=== PATIENT | female | born 1960 | race Caucasian/White ===

== ENCOUNTER 2018-05-17 18:14 | Inpatient (IN) | payer BC, OTHER ==
[~2018-05-17] VITALS: Ht 160 cm; Wt 87.5 kg
[~2018-05-17 18:14] MED LIST: AMO500 PO; BLOOD PRESSURE MED; FLUT10SP NS; HCTZ25 PO; KET10 PO; LISI-346 PO; LORA-630 PO; MECL-205 PO; MECL25TA27 PO; MELO7.5O3 PO; PRE20 PO; PROM-110 PO; [UNRECOGNIZED DRUG - CODE] PO
[2018-05-17] MEDS ORDERED: NS(*) 0.9% 1000 ML BAG 1,000 ML IV ONE (18:27)
[2018-05-17] MEDS ORDERED: ALBUTEROL/IPRATROPIUM 3 ML NEB NEB ONE (18:30)
[2018-05-17] MEDS ORDERED: MORPHINE 2 MG/ML SYR IVP ONE (18:30)
[2018-05-17 18:52] LABS: PLATELET COUNT, AUTOMATED 225 K/uL (150-450)
--- NOTE | 2018-05-17 18:52 | EKG ---
FACILITY: [facility] - [place] PATIENT NAME: SCOTT CANALES : [id number] MR: [id number] V: [id number] EXAM DATE: ORDERING PHYSICIAN: CASANDRA GUERRERO TECHNOLOGIST: JOSELUIS Mix Reason : SOB Blood Pressure : / mmHG Vent. Rate : 100 BPM Atrial Rate : 100 BPM P-R Int : 120 ms QRS Dur : 076 ms QT Int : 320 ms P-R-T Axes : 065 047 035 degrees QTc Int : 412 ms Normal sinus rhythm Normal ECG When compared with ECG of 12-JUL-2016 22:42, No significant change was found Confirmed by Sahil Guzman ([id number]) on 05/17/2018 11:10:38 PM Referred By: Confirmed By:Sahil Catalan
--- NOTE | 2018-05-17 19:08 | ER Report ---
History and Physical Time Seen By MD: 18:23 Hx. of Stated Complaint: Pt. sent here from [facility] with diagnosis of RUL Pneumonia. She needed O2 for home use for hypoxia, and [facility] does not do home oxygen so she came here. Fever 100.9. HPI/ROS CHIEF COMPLAINT: Cough, hypoxia, headache HISTORY OF PRESENT ILLNESS: 58-year-old female patient presents to emergency room with complaint of cough, hypoxia and headache. Patient states that she got into the medical center acute-care clinic. She was evaluated there. They did a chest x-ray found a left lower lobe pneumonia. Patient was not able to maintain her oxygen saturations without oxygen and was referred to emergency room for possible admission. Patient states that she has had a fever. She denies any nausea, vomiting or diarrhea. Patient states that her headache is worse headache she is had. She denies any numbness or tingling. She denies any confusion. She states that she has not taken any medication for this. She states she been ill for several days. She was placed on Augmentin a couple of days ago for sinusitis. She came back to the urgent care today and was significantly worse. Patient did have a flu shot this year and has not had a flu screening. REVIEW OF SYSTEMS: Respiratory: As noted above Cardiovascular: No chest pain, no palpitations. Gastrointestinal: No vomiting, no abdominal pain. Musculoskeletal: No back pain. Allergies: Coded Allergies: No Known Drug Allergies (Verified , 05/17/18) Home Meds Reported Medications Meloxicam (MELOXICAM) 7.5 Mg/5 Ml Oral.susp, 7.5 MG PO BID PRN for PAIN 07/12/16 Meclizine Hcl (MECLIZINE HCL) 25 Mg Tab.chew, 25 MG PO BID PRN for DIZZINESS, TAB.CHEW 07/12/16 Lisinopril (Lisinopril) 10 Mg Tablet, 15 MG PO, 0 Refills 02/11/09 Levothyroxine Sodium (Synthroid) 500 Mcg/Vial Vial, 50 MCG PO QDAY, 0 Refills 02/11/09 Past Medical/Surgical History Patient has a past medical history of hypertension, migraines, hypothyroidism. Patient has surgical history of thyroidectomy. Reviewed Nurses Notes: Yes Hx Smoking: No Hx Substance Use Disorder: No Hx Alcohol Use: No Constitutional Vital Sign - Last 24 Hours 205/17/18 05/17/18 05/17/18 18:22 18:23 18:24 18:29 Temp 100.9 Pulse 106 108 103 B/P (MAP) 109/63 109/63 (78) Pulse Ox 95 96 94 O2 Delivery Nasal Cannula Nasal Cannula O2 Flow Rate 3 05/17/18 05/17/18 05/17/18 05/17/18 18:30 18:34 18:39 18:44 Pulse 97 101 Resp 17 20 16 B/P (MAP) 118/57 (77) Pulse Ox 94 94 05/17/18 05/17/18 05/17/18 05/17/18 18:44 18:44 18:48 18:49 Pulse 97 115 Resp 23 14 Pulse Ox 94 94 98 O2 Delivery Nasal Cannula O2 Flow Rate 3.0 4.0 05/17/18 05/17/18 05/17/18 05/17/18 18:54 18:57 18:59 19:00 Pulse 113 97 108 Resp 19 16 29 B/P (MAP) 111/62 (78) Pulse Ox 93 92 05/17/18 05/17/18 05/17/18 05/17/18 19:04 19:09 19:14 19:29 Pulse 106 105 104 107 Resp 29 17 21 17 Pulse Ox 93 93 93 95 05/17/18 05/17/18 05/17/18 05/17/18 19:30 19:34 19:39 19:44 Pulse 102 106 102 Resp 18 21 19 B/P (MAP) 139/54 (82) Pulse Ox 96 96 97 05/17/18 05/17/18 05/17/18 05/17/18 19:49 20:02 20:24 20:30 Pulse 105 94 Resp 22 14 B/P (MAP) 119/55 (76) 106/51 (69) Pulse Ox 98 95 05/17/18 05/17/18 05/17/18 20:35 21:05 21:20 Pulse 90 94 94 Resp 18 20 21 Pulse Ox 95 93 95 Physical Exam General Appearance: The patient is alert, has no immediate need for airway protection and no current signs of toxicity. Respiratory: Chest is non tender, lungs are diminished in the bases to auscultation. Cardiac: regular rate and rhythm Gastrointestinal: Abdomen is soft and non tender, no masses, bowel sounds normal. Musculoskeletal: Neck: Neck is supple and non tender. Extremities have full range of motion and are non tender. Skin: No rashes or lesions. DIFFERENTIAL DIAGNOSIS: After history and physical exam differential diagnosis was considered for pneumonia, influenza, viral syndrome. Medical Decision Making Data Points Result Diagram: 05/17/182 05/17/182 Laboratory Hematology Test 05/17/18 18:42 05/17/18 18:45 05/17/18 19:42 Red Blood Count 4.54 M/uL (4.17-5.56) Mean Corpuscular Volume 88.9 fL (80.0-96.0) Mean Corpuscular Hemoglobin 29.4 pg (26.0-33.0) Mean Corpuscular Hemoglobin Concent 33.1 g/dL (32.0-36.0) Red Cell Distribution Width 15.2 % (11.5-14.5) Mean Platelet Volume 8.8 fL (7.2-11.1) Neutrophils (%) (Auto) 81.1 % (39.4-72.5) Lymphocytes (%) (Auto) 13.9 % (17.6-49.6) Monocytes (%) (Auto) 4.3 % (4.1-12.4) Eosinophils (%) (Auto) 0.1 % (0.4-6.7) Basophils (%) (Auto) 0.6 % (0.3-1.4) Nucleated RBC Relative Count (auto) 0.0 /100WBC Neutrophils # (Auto) 5.3 K/uL (2.0-7.4) Lymphocytes # (Auto) 0.9 K/uL (1.3-3.6) Monocytes # (Auto) 0.3 K/uL (0.3-1.0) Eosinophils # (Auto) 0.0 K/uL (0.0-0.5) Basophils # (Auto) 0.0 K/uL (0.0-0.1) Nucleated RBC Absolute Count (auto) 0.00 K/uL Erythrocyte Sedimentation Rate 37 mm/HOUR (0-30) D-Dimer Quantitative (PE/DVT) 1.95 ug/ml (0-0.50) Sodium Level 134 mmol/L (137-145) Potassium Level 4.7 mmol/L (3.5-5.0) Chloride Level 102 mmol/L (98-107) Carbon Dioxide Level 20 mmol/L (22-31) Blood Urea Nitrogen 28 mg/dl (7-18) Creatinine 1.90 mg/dl (0.52-1.04) Glomerular Filtration Rate Calc 27.2 Random Glucose 100 mg/dl (75-110) Calcium Level 8.6 mg/dl (8.4-10.2) Total Bilirubin 0.9 mg/dl (0.2-1.3) Aspartate Amino Transf (AST/SGOT) 59 U/L (0-35) Alanine Aminotransferase (ALT/SGPT) 42 U/L (0-56) Alkaline Phosphatase 86 U/L (0-126) Troponin I 0.028 ng/ml C-Reactive Protein 22.9 mg/dl (<1.0) Total Protein 7.9 g/dl (6.3-8.2) Albumin 4.3 g/dl (3.5-5.0) Influenza Virus Type A (PCR) Positive (NEGATIVE) Influenza Virus Type B (PCR) Negative (NEGATIVE) Lactate 1.3 mmol/L (0.7-2.1) Chemistry Test 05/17/18 18:42 05/17/18 18:45 05/17/18 19:42 White Blood Count 6.5 k/uL (4.5-11.0) Red Blood Count 4.54 M/uL (4.17-5.56) Hemoglobin 13.4 g/dL (12.0-16.0) Hematocrit 40.3 % (34.0-47.0) Mean Corpuscular Volume 88.9 fL (80.0-96.0) Mean Corpuscular Hemoglobin 29.4 pg (26.0-33.0) Mean Corpuscular Hemoglobin Concent 33.1 g/dL (32.0-36.0) Red Cell Distribution Width 15.2 % (11.5-14.5) Platelet Count 225 K/uL (150-450) Mean Platelet Volume 8.8 fL (7.2-11.1) Neutrophils (%) (Auto) 81.1 % (39.4-72.5) Lymphocytes (%) (Auto) 13.9 % (17.6-49.6) Monocytes (%) (Auto) 4.3 % (4.1-12.4) Eosinophils (%) (Auto) 0.1 % (0.4-6.7) Basophils (%) (Auto) 0.6 % (0.3-1.4) Nucleated RBC Relative Count (auto) 0.0 /100WBC Neutrophils # (Auto) 5.3 K/uL (2.0-7.4) Lymphocytes # (Auto) 0.9 K/uL (1.3-3.6) Monocytes # (Auto) 0.3 K/uL (0.3-1.0) Eosinophils # (Auto) 0.0 K/uL (0.0-0.5) Basophils # (Auto) 0.0 K/uL (0.0-0.1) Nucleated RBC Absolute Count (auto) 0.00 K/uL Erythrocyte Sedimentation Rate 37 mm/HOUR (0-30) D-Dimer Quantitative (PE/DVT) 1.95 ug/ml (0-0.50) Glomerular Filtration Rate Calc 27.2 Calcium Level 8.6 mg/dl (8.4-10.2) Total Bilirubin 0.9 mg/dl (0.2-1.3) Aspartate Amino Transf (AST/SGOT) 59 U/L (0-35) Alanine Aminotransferase (ALT/SGPT) 42 U/L (0-56) Alkaline Phosphatase 86 U/L (0-126) Troponin I 0.028 ng/ml C-Reactive Protein 22.9 mg/dl (<1.0) Total Protein 7.9 g/dl (6.3-8.2) Albumin 4.3 g/dl (3.5-5.0) Influenza Virus Type A (PCR) Positive (NEGATIVE) Influenza Virus Type B (PCR) Negative (NEGATIVE) Lactate 1.3 mmol/L (0.7-2.1) Coagulation Test 05/17/18 18:42 D-Dimer Quantitative (PE/DVT) 1.95 ug/ml EKG/Imaging Imaging CT Head without contrast Indication: Headache. Comparison: None available Technique: Axial CT images were obtained through the brain from the skull base to the vertex without administration of IV contrast. Reformatted coronal and sagittal images were also obtained. One of the following dose optimization techniques was utilized in the performance of this exam: automated exposure control; adjustment of the mA and/or kV according to the patient's size; or use of an iterative reconstruction technique. Specific details can be referenced in the facility's radiology CT exam operational policy. Findings: No evidence of mass, mass effect, or midline shift. No acute intracranial hemorrhage or acute territorial infarction. No extra-axial fluid collection or hydrocephalus. No abnormal density. Nino/white matter differentiation appears normal. Bony structures show no fractures or lesions. Mild hyperostosis from talus. Mild rightward deviation nasal septum. Focal mucosal thickening seen in the posterior aspect of the left maxillary sinus which could represent a cyst/polyp. Minimal mucosal thickening seen in the left sphenoid sinus. The remaining sinuses and mastoids visualized are clear. IMPRESSION: 1. No acute intracranial abnormality. 2. Left maxillary and sphenoid sinus disease. Report Dictated By: Chase Mcclendon at 05/17/2018 7:32 PM Report E-Signed By: Chase Mcclendon at 05/17/2018 7:36 PM ED Course/Re-evaluation ED Course Patient was admitted on exam, history and physical were obtained. Differential diagnoses were considered. On examination lungs are clear, heart is regular, abdomen is soft tender. I did review the x-ray which was done at the urgent ca re. They read wasn't occluded with even of a infiltrate in the right lower lobe. A CBC, CMP, lactate, blood cultures, influenza screen, CT scan of the head were done. Patient complaining of horrible headache did receive a dose of 4 mg of morphine. Which seem to help with the pain. CT scan of the head showed a sinus disease. Labs showed no acute findings except the patient does have renal failure. Her creatinine today and measured 1.9. In the past and had measured 0.8. Her influenza was positive. Her ESR and CRP were both elevated. I discussed the case with Dr. Carcamo, hospitalist, who came down and evaluated the patient and agreed to accept the patient to the hospital with diagnosis of influenza, pneumonia, acute renal failure. I discussed this with the patient and her verbalized understanding and agreement with plan. Decision to Disposition Date: May 17, 2018 Decision to Disposition Time: 21:00 Depart Departure Latest Vital Signs Vital Signs Date Time Temp Pulse Resp B/P (MAP) Pulse Ox O2 Delivery O2 Flow Rate FiO2 05/17/18 21:20 94 21 95 05/17/18 20:30 106/51 (69) 05/17/18 18:48 4.0 05/17/18 18:44 Nasal Cannula 05/17/18 18:22 100.9 Impression: Primary Impression: Influenza A Additional Impressions: Acute renal failure Pneumonia Elevated d-dimer Condition: Condition Unchanged Disposition: Admitted from ER Referrals: NEHEMIAH SINGLETARY (PCP) Problem Qualifiers Additional Impressions: Acute renal failure Acute renal failure type: unspecified Qualified Codes: N17.9 - Acute kidney failure, unspecified Pneumonia Pneumonia type: due to unspecified organism Laterality: right Lung location: lower lobe of lung Qualified Codes: J18.1 - Lobar pneumonia, unspecified organism CASANDRA GUERRERO May 17, 2018 19:08
--- NOTE | 2018-05-17 19:41 | RADIOLOGY IMAGING REPORT ---
FACILITY: [facility] - [place] PATIENT NAME: Ruby Peng : 1960 MR: [id number] V: [id number] EXAM DATE: ORDERING PHYSICIAN: CASANDRA GUERRERO TECHNOLOGIST: Location: [facility] Patient: Ruby Peng : 1960 Visit/Account:[id number] Date of Sevice: 05/17/2018 CT Head without contrast Indication: Headache. Comparison: None available Technique: Axial CT images were obtained through the brain from the skull base to the vertex without administration of IV contrast. Reformatted coronal and sagittal images were also obtained. One of the following dose optimization techniques was utilized in the performance of this exam: autom ated exposure control; adjustment of the mA and/or kV according to the patient's size; or use of an i terative reconstruction technique. Specific details can be referenced in the facility's radiology CT exam operational policy. Findings: No evidence of mass, mass effect, or midline shift. No acute intracranial hemorrhage or acute territorial infarction. No extra-axial fluid collection or hydrocephalus. No abnormal density. Nino/white matter differentiat ion appears normal. Bony structures show no fractures or lesions. Mild hyperostosis from talus. Mild rightward deviation nasal septum. Focal mucosal thickening seen in the posterior aspect of the left maxillary sinus which could represe nt a cyst/polyp. Minimal mucosal thickening seen in the left sphenoid sinus. The remaining sinuses an d mastoids visualized are clear. IMPRESSION: 1. No acute intracranial abnormality. 2. Left maxillary and sphenoid sinus disease. Report Dictated By: Chase Mcclendon at 05/17/2018 7:32 PM Report E-Signed By: Chase Mcclendon at 05/17/2018 7:36 PM WSN:[id number]
[2018-05-17] MEDS ORDERED: ACETAMINOPHEN(*)1000 MG/100 ML 100 ML IVPB ONE (21:25)
[2018-05-17] MEDS ORDERED: cefTRIAXone 2 GM VIAL IVP ONE (21:25)
[2018-05-17] MEDS ORDERED: AZITHROMYCIN(*) 500 MG 500 MG in NS(*) 0.9% 250 ML BAG 250 ML IVPB ONE (21:25)
[2018-05-17] MEDS ORDERED: NS(*) 0.9% 1000 ML BAG 1,000 ML IV PRN (22:04)
[2018-05-17] MEDS ORDERED: FLUSH 10 ML SYR IVP PRN (22:05)
[2018-05-17] MEDS ORDERED: OSELTAMIVIR PHOS 75 MG CAP PO SCH (22:05)
[2018-05-17] MEDS ORDERED: ONDANSETRON 4 MG/2 ML VIAL IVP PRN (22:05)
[2018-05-17] MEDS ORDERED: INFLUENZA VIRUS VAC 0.5ML SYR IM ONLY ONE (22:05)
[2018-05-17] MEDS ORDERED: ALBUTEROL 2.5 MG/3 ML NEB NEB PRN (22:05)
[2018-05-17] MEDS ORDERED: ACETAMINOPHEN 325 MG TAB PO PRN (22:05)
[2018-05-17 22:07] VITALS: BP 132/66
--- NOTE | 2018-05-17 22:47 | History & Physical ---
History of Present Illness Chief Complaint fatigue, fever, PATEL History of Present Illness 58F presented after being found hypoxic with CXR suggestive of PNA at urgent care. PMHx significant for prediabetes, HTN, hypothyroid. Feeling poorly for 5-6 days diagnosed Monday with sinusitis in urgent care and started on Augmentin. Continued to feel poorly and when she was found hypoxic today CXR was obtained and RUL infiltrate noted. Sent to [facility] ER where she was tested positive for influenza a. Admitted for IV antibiotics, IV hydration, supplemental O2, antiviral treatment. History Problems: (1) Hypertension (2) Hypothyroid (3) Prediabetes Home Meds Reported Medications Meloxicam (MELOXICAM) 7.5 Mg/5 Ml Oral.susp, 7.5 MG PO BID PRN for PAIN 07/12/16 Meclizine Hcl (MECLIZINE HCL) 25 Mg Tab.chew, 25 MG PO BID PRN for DIZZINESS, TAB.CHEW 07/12/16 Lisinopril (Lisinopril) 10 Mg Tablet, 15 MG PO, 0 Refills 02/11/09 Levothyroxine Sodium (Synthroid) 500 Mcg/Vial Vial, 50 MCG PO QDAY, 0 Refills 02/11/09 Allergies: Coded Allergies: No Known Drug Allergies (Verified , 05/17/18) Patient History: FH: diabetes mellitus MOTHER Hx Smoking: No Smoking Status: Never Smoker Hx Alcohol Use: No Hx Substance Use Disorder: No Social Drug Use: Never Review of Systems Constitutional: Fever Respiratory: Shortness of Breath, Cough Gastrointestinal: Nausea, Vomiting Exam Vital Signs Vital Signs Date Time Temp Pulse Resp B/P (MAP) Pulse Ox O2 Delivery O2 Flow Rate FiO2 05/17/18 22:07 99.0 87 18 132/66 (88) 97 Nasal Cannula 3.0 General Appearance: Alert, Awake, No Acute Distress Neuro: No Gross deficits ENT: Normal Cardiovascular: Normal Rhythm & Peripheral Pulses Respiratory: Other (diffuse crackles, wheezing on 3L NC) GI: Abd Soft and Non-Tender Extremities: Soft and Non Tender, Warm, Pulses, Perfused; No Edema Integumentary: Skin Intact without Lesion / Mass Medical Decision Making Data Points Result Diagram: 05/17/18184105/17/181841 Assessment and Plan Problems: (1) Acute respiratory failure with hypoxia Assessment & Plan: Secondary to influenza and pneumonia. Requiring 3L on admission, baseline room air. (2) Influenza A Status: Acute Assessment & Plan: Begin oseltamivir, supportive care. (3) Pneumonia Status: Acute Assessment & Plan: RLL per CXR at urgent care. Started on empiric CAP coverage with ceftriaxone and azithromycin IV. (4) Acute renal failure Status: Acute Assessment & Plan: Cr 1.9 on admission, baseline appears to be normal range about 0.9. IV fluids and recheck Cr in am. (5) Hypertension Assessment & Plan: ON chronic lisinopril, hold in setting of ALBINO. (6) Hypothyroid Assessment & Plan: Continue levothyroxine. (7) Prediabetes Assessment & Plan: On metformin outpatient, hold while inpatient. Diabetic diet. Venous Thromboembolism Antithrombotics Is Pt On Any Antithrombotics?: Yes Exam Sepsis Risk: Possible Sepsis Risk Problem Qualifiers (1) Pneumonia: Pneumonia type: due to unspecified organism Laterality: right Lung location: lower lobe of lung Qualified Codes: J18.1 - Lobar pneumonia, unspecified organism (2) Acute renal failure: Acute renal failure type: unspecified Qualified Codes: N17.9 - Acute kidney failure, unspecified MODESTA GRIFFIN DO May 17, 2018 22:47
[2018-05-17] MEDS: ALBUTEROL/IPRATROPIUM 3 ML NEB NEB SCH (23:03)
[2018-05-18] MEDS: OSELTAMIVIR PHOS 30 MG CAP PO SCH ×2 (00:52→09:11)
[2018-05-18 01:02] VITALS: BP 99/62
[2018-05-18 03:42] VITALS: BP 119/55
[2018-05-18 06:13] LABS: PLATELET COUNT, AUTOMATED 196 K/uL (150-450)
--- NOTE | 2018-05-18 07:16 | RADIOLOGY IMAGING REPORT ---
FACILITY: [facility] PATIENT NAME: Ruby Peng : 1960 MR: [id number] V: [id number] EXAM DATE: ORDERING PHYSICIAN: MODESTA SEE TECHNOLOGIST: Location: [facility] [place] Patient: Ruby Peng : 1960 Visit/Account:[id number] Date of Sevice: 05/18/2018 CHEST SINGLE AP 05/18/2018 06:25 hours. HISTORY: Pneumonia. COMPARISON: 07/12/2016 and studies dating to 02/06/2008. TECHNIQUE: Portable AP view of the chest. FINDINGS: Tubes/lines/hardware: None. Pulmonary/pleura: There is bronchial thickening and mild prominence of interstitium, new. There is no pneumothorax or pleural effusion. Cardiomediastinal: Cardiac and mediastinal silhouettes are within normal limits. Bones/soft tissues: No acute osseous abnormality. The visible abdomen is normal. IMPRESSION: 1. New interstitial prominence and bronchial thickening. Findings can be seen with atypical/viral pne umonia. Report Dictated By: Abby Valdez at 05/18/2018 7:10 AM Report E-Signed By: Abby Vadlez at 05/18/2018 7:14 AM [id number]
[2018-05-18 07:23] VITALS: BP 110/63
[2018-05-18 08:26] VITALS: Ht 160 cm; Wt 87.5 kg
--- NOTE | 2018-05-18 08:34 | Medical Nutrition Therapy ---
Nutrition Anthropometrics Height (Inches): 63.00 Height (Calculated Centimeters: 160.912594 Weight (Pounds): 193 Weight (Calculated Kilograms): 87.543 Joshua Nutrition Score: Probably Inadequate Joshua Nutrition Risk Score: 19 Dietary Referral Nutrition Risk Factors: Nutrition Risk Comment: Physical Findings Physical Appearance: Obese BMI 30-39 Skin Appearance Skin Appearance: Edema Edema Location Modifier: Edema Location: Type of Edema: Degree of Edema: Gastrointestinal Symptoms GI Symtoms: Nausea, Vomiting, Appetite Changes Tube Present: Bowel Sounds: Recent Bowel Pattern: Stool Characteristics: Nutritional Diagnosis Nutritional Risk Acuity 1: Acute/ES Renal Past Medical History: HTN, hypothyroid, pre-diabetes Nutritional Acuity: 1-High Nutrition Diagnosis: Increased Nutrient Needs Nutrition Etiology: Physiological Causes Nutrition Problem/Etiology/Sym: Increased nutrient needs as related to physiological causes as evidenced by acute resp. failure. Energy Requirement: 2038 (M-St. Jeor X 1.1 (TEF) X 1.3 (activity factor) slightly increased due to resp. failure) Protein Requirement: 70 (0.8 g protein/ kg. Did not increase due to ARF) Fluid Requirement: 2175 (25mL/kg) Nutrition Intervention: Cont diet as ordered, Encourage intake Nutrition Monitoring & Eval Nutrition Goals: Eat 50-100% Meal, Drink > 2 liters/day RD Patient Assessment Time: [address] Assessment Type: RD Assessment Patient Nutrition Acuity: 1-High Follow Up Date: May 20, 2018 Nutritional Comment: Pt admitted with fatigue, fever and PATEL. Hx of HTN, hyopthyroid, and pre-diabetes. Dx with acute resp. failure, influenza A, pneumonia, and acute renal failure. Pt taking enoxaprin. RBC of 4.14 are low. AST has improved from 59-42, while ALT is WNL. BUN, CO2, and creatinine were elevated but has decreased to WNL. Monitor for adequate intakes. -DIMITRI ORTEGA May 18, 2018 08:34
[2018-05-18] MEDS ORDERED: ENOXAPARIN 40 MG/0.4ML SYR SC SCH (09:00)
[2018-05-18] MEDS ORDERED: OSELTAMIVIR PHOS 75 MG CAP PO ONE (09:30)
[2018-05-18] MEDS: ALBUTEROL/IPRATROPIUM 3 ML NEB NEB SCH (10:40)
--- NOTE | 2018-05-18 13:17 | Hospitalist Progress Note ---
Subjective Progress Notes Subjective She reports feeling improved, but still no appetite. Physical Exam Vital Signs Date Time Temp Pulse Resp B/P (MAP) Pulse Ox O2 Delivery O2 Flow Rate FiO2 05/18/18 10:45 81 16 05/18/18 10:36 93 Nasal Cannula 1.5 05/18/18 07:23 98.8 110/63 (79) Intake and Output 05/18/18 07:00 Intake Total 2178 ml Balance 2178 ml Intake Oral 350 ml IV Total 1828 ml # Voids 3 General Appearance: Alert, Awake Cardiovascular: Regular Rate and Rhythm Respiratory: Other (scattered rhonchi and soft expiratory wheezes) GI: Soft and Non-Tender Extremities: Warm, Perfused Psych: Alert & Oriented X3 Result Diagram: 05/18/1852105/18/18521 Assessment and Plan Problems: (1) Influenza A Status: Acute Assessment & Plan: She is on oseltamivir and supportive care. Watch closely. (2) Pneumonia Status: Acute Assessment & Plan: Found to have RLL per CXR at urgent care (recheck CXR today). Started on empiric CAP coverage with ceftriaxone and azithromycin IV. (3) Acute renal failure Status: Acute Assessment & Plan: Creatinine 1.9 on admission. She was given IV fluids overn ight. Recheck this AM is in normal range at 1.0. (4) Hypertension Assessment & Plan: She has been on chronic lisinopril, but we are holding in setting of ALBINO. (5) Hypothyroid Assessment & Plan: Continue levothyroxine. (6) Prediabetes Assessment & Plan: On metformin as an outpatient, hold while inpatient. Exam Sepsis Risk: No Definite Risk Problem Qualifiers (1) Pneumonia: Pneumonia type: due to unspecified organism Laterality: right Lung location: lower lobe of lung Qualified Codes: J18.1 - Lobar pneumonia, unspecified organism (2) Acute renal failure: Acute renal failure type: unspecified Qualified Codes: N17.9 - Acute kidney failure, unspecified ADOLFO JOHNSON MD May 18, 2018 13:17
[2018-05-18] MEDS ORDERED: OSE75 PO (14:51)
[2018-05-18] MEDS ORDERED: CEF300 PO (14:51)
[2018-05-18] MEDS ORDERED: AZIT500T47 PO (14:51)
[2018-05-18] MEDS ORDERED: ACET-2007 PO (14:51)
--- NOTE | 2018-05-18 15:11 | Hospitalist Depart ---
Discharge Summary Reason for Hosp/Final Diag: (1) Pneumonia Status: Acute Hospital Course & Plan: She was found to have an infiltrate on CXR done at local urgent care. Recheck CXR showed bronchial thickening with interstitial prominence. She was started on empiric CAP coverage with IV ceftriaxone and azithromycin, as well as oral Tamiflu. She was given supplemental oxygen as needed. Her room air oxygen saturations were in 80% range. She improved clinically with respect to her symptoms. She was eating and drinking well. She was tolerating low levels of activity. It was felt she would be able to complete her course of antibiotics and antiviral as an outpatient. She will need supplemental oxygen temporarily. She will follow up with her primary care provider, Renee MUELLER, as an outpatient in the next 3-5 days. She will return to the ER if any problems. (2) Influenza A Status: Acute Hospital Course & Plan: She was placed on oseltamivir and supportive care. Her family was advised to contact their primary care provider to discuss prophylaxis for influenza. (3) Acute renal failure Status: Acute Hospital Course & Plan: Creatinine 1.9 on admission. She was given IV fluids overnight. Recheck this AM is in normal range at 1.0. (4) Hypertension Hospital Course & Plan: She has been on chronic lisinopril, but we are currently holding. Her BPs during admission were are in low normal range. She was advised not to take the lisinopril until she sees her primary care provider. (5) Hypothyroid Hospital Course & Plan: Continue levothyroxine. (6) Prediabetes Hospital Course & Plan: Apparently, she has been on metformin as an outpatient. We did hold this while inpatient. Departure Weight (Pounds): 193 Result Diagram: 05/18/1852105/18/18521 Item Value Date Time White Blood Count 6.5 k/uL 05/17/181841 Hemoglobin 13.4 g/dL 05/17/181841 Hematocrit 40.3 % 05/17/181841 Platelet Count 225 K/uL 05/17/18 184 Sodium Level 134 mmol/L L 05/17/18 184 Potassium Level 4.7 mmol/L 05/17/181841 Chloride Level 102 mmol/L 05/17/181841 Carbon Dioxide Level 20 mmol/L L 05/17/181841 Blood Urea Nitrogen 28 mg/dl H 05/17/181841 Creatinine 1.90 mg/dl H 05/17/181841 Glomerular Filtration Rate Calc 27.2 05/17/181841 Random Glucose 100 mg/dl 05/17/181841 Calcium Level 8.6 mg/dl 05/17/181841 Total Bilirubin 0.9 mg/dl 05/17/181841 Aspartate Amino Transf (AST/SGOT) 59 U/L H 05/17/181841 Alanine Aminotransferase (ALT/SGPT) 42 U/L 05/17/181841 Alkaline Phosphatase 86 U/L 05/17/181841 Troponin I 0.028 ng/ml 05/17/181841 C-Reactive Protein 22.9 mg/dl H 05/17/181841 Total Protein 7.9 g/dl 05/17/181841 Albumin 4.3 g/dl 05/17/181841 Lactate 1.3 mmol/L 05/17/181941 Albumin 3.5 g/dl 05/18/18521 Total Protein 6.3 g/dl 05/18/18521 Alkaline Phosphatase 77 U/L 05/18/18521 Alanine Aminotransferase (ALT/SGPT) 39 U/L 05/18/18521 Aspartate Amino Transf (AST/SGOT) 42 U/L H 05/18/18521 Total Bilirubin 0.5 mg/dl 05/18/18521 Calcium Level 8.6 mg/dl 05/18/18521 D-Dimer Quantitative (PE/DVT) 1.95 ug/ml H 05/17/181841 Influenza Virus Type B (PCR) Negative 05/17/181844 Influenza Virus Type A (PCR) Positive 05/17/181844 [facility] *LIVE* [address] [place] [address] TY SANON M.D., DIRECTOR OF LABORATORY SERVICES MODESTA VILLA M.D., PATHOLOGIST RUN DATE: 05/18/18 Specimen Inquiry Report PAGE 1 RUN TIME: 1000 PATIENT: SCOTT CANALES ACCT: [id number] LOC: MED U: [id number] AGE/SX: 58/F ROOM: 2265 RE05/17/[address]: MODESTA GUZMAN : 1960 BED: 265 DIS: STATUS: ADM IN TLOC: SPEC #: [id number] SHERIN: 05/17/18 STATUS: RES REQ #: [id number] RECD: 05/17/[address]: CASANDRA GUERRERO [facility] SOURCE: BLOOD ENTR: 05/17/[address] [facility] [address]: NEHEMIAH SINGLETARY [facility]: ORDERED: CULT BLOOD ------- ----- Procedure Result Verified BLOOD CULTURE Preliminary 05/18/18-1000 NO GROWTH AFTER 1 DAY, REINCUBATED [facility] *LIVE* [address] [place] [address] TY SANON M.D., DIRECTOR OF LABORATORY SERVICES MODESTA VILLA M.D., PATHOLOGIST RUN DATE: 05/18/18 Specimen Inquiry Report PAGE 1 RUN TIME: 1000 PATIENT: SCOTT CANALES ACCT: [id number] LOC: MED U: [id number] AGE/SX: 58/F ROOM: [facility] RE05/17/[address]: MODESTA GUZMAN : 1960 BED: 265 DIS: STATUS: ADM IN TLOC: SPEC #: [id number] SHERIN: 05/17/18 STATUS: RES REQ #: [id number] RECD: 05/17/[address]: CASANDRA GUERRERO SOURCE: BLOOD ENTR: 05/17/18-[address] [facility] [address]: NEHEMIAH SINGLETARYP [facility]ES[facility]: ORDERED: CULT BLOOD Procedure Result Verified --- --------- BLOOD CULTURE Preliminary 05/18/18-1000 NO GROWTH AFTER 1 DAY, REINCUBATED Imaging PATIENT NAME: Scott Canales : 1960 MR: [id number] V: [id number] EXAM DATE: [id number] ORDERING PHYSICIAN: MODESTA CATALAN TECHNOLOGIST: Location: [facility] [place] Patient: Scott Canales : 1960 Visit/Account:[id number] Date of Sevice: 05/18/2018 CHEST SINGLE AP 05/18/2018 06:25 hours. HISTORY: Pneumonia. COMPARISON: 07/12/2016 and studies dating to 02/06/2008. TECHNIQUE: Portable AP view of the chest. FINDINGS: Tubes/lines/hardware: None. Pulmonary/pleura: There is bronchial thickening and mild prominence of interstitium, new. There is no pneumothorax or pleural effusion. Cardiomediastinal: Cardiac and mediastinal silhouettes are within normal limits. Bones/soft tissues: No acute osseous abnormality. The visible abdomen is normal. IMPRESSION: 1. New interstitial prominence and bronchial thickening. Findings can be seen with atypical/viral pneumonia. Report Dictated By: Abby Valdez at 05/18/2018 7:10 AM Report E-Signed By: Abby Valdez at 05/18/2018 7:14 AM WSN:[id number] PATIENT NAME: Scott Canales : 1960 MR: [id number] V: [id number] EXAM DATE: ORDERING PHYSICIAN: CASANDRA GUERRERO TECHNOLOGIST: Location: [facility] Patient: Scott Canales : 1960 Visit/Account:[id number] Date of Sevice: 05/17/2018 CT Head without contrast Indication: Headache. Comparison: None available Technique: Axial CT images were obtained through the brain from the skull base to the vertex without administration of IV contrast. Reformatted coronal and sagittal images were also obtained. One of the following dose optimization techniques was utilized in the perfor brian of this exam: automated exposure control; adjustment of the mA and/or kV according to the patient's size; or use of an iterative reconstruction technique. Specific details can be referenced in the facility's radiology CT exam operational policy. Findings: No evidence of mass, mass effect, or midline shift. No acute intracranial hemorrhage or acute territorial infarction. No extra-axial fluid collection or hydrocephalus. No abnormal density. Nino/white matter differentiation appears normal. Bony structures show no fractures or lesions. Mild hyperostosis from talus. Mild rightward deviation nasal septum. Focal mucosal thickening seen in the posterior aspect of the left maxillary sinus which could represent a cyst/polyp. Minimal mucosal thickening seen in the left sphenoid sinus. The remaining sinuses and mastoids visualized are clear. IMPRESSION: 1. No acute intracranial abnormality. 2. Left maxillary and sphenoid sinus disease. Report Dictated By: Chase Mcclendon at 05/17/2018 7:32 PM Report E-Signed By: Chase Mcclendon at 05/17/2018 7:36 PM WSN:[id number] EKG PATIENT NAME: SCOTT CANALES : [id number] MR: [id number] V: [id number] EXAM DATE: ORDERING PHYSICIAN: CASANDRA GUERRERO TECHNOLOGIST: JUANIER Test Reason : SOB Blood Pressure : / mmHG Vent. Rate : 100 BPM Atrial Rate : 100 BPM P-R Int : 120 ms QRS Dur : 076 ms QT Int : 320 ms P-R-T Axes : 065 047 035 degrees QTc Int : 412 ms Normal sinus rhythm Normal ECG When compared with ECG of 12-JUL-2016 22:42, No significant change was found Confirmed by Modesta Guzman ([id number]) on 05/17/2018 11:10:38 PM Referred By: Confirmed By:Modesta Catalan Condition: Improved Discharge: Home Time Spent: > 30 min Discharge Instructions Home Meds Active Scripts Levothyroxine Sodium (LEVOTHYROXINE SODIUM) 50 Mcg Tablet, 50 MCG PO QDAY, #30 TAB Prov:ADOLFO JOHNSON MD 05/18/18 Azithromycin (AZITHROMYCIN) 500 Mg Tablet, 1 TAB PO QDAY, #3 TAB 0 Refills Prov:ADOLFO JOHNSON MD 05/18/18 Cefdinir 300 Mg Cap (OMNICEF 300 MG CAP (OR EQUIV)) 300 Mg Cap, 300 MG PO BID for 10 Days, #20 CAP 0 Refills Prov:ADOLFO JOHNSON MD 05/18/18 Oseltamivir Phosphate (TAMIFLU) 75 Mg Cap, 75 MG PO BID for 5 Days, #10 CAP 0 Refills Prov:ADOLFO JOHNSON MD 05/18/18 Acetaminophen (MAPAP) 325 Mg Tablet, 650 MG PO Q6H PRN for PAIN OR FEVER 100 OR GREATER for 14 Days, #30 TAB 1 Refill Prov:ADOLFO JOHNSON MD 05/18/18 Discontinued Reported Medications Meloxicam (MELOXICAM) 7.5 Mg/5 Ml Oral.susp, 7.5 MG PO BID PRN for PAIN 07/12/16 Meclizine Hcl (MECLIZINE HCL) 25 Mg Tab.chew, 25 MG PO BID PRN for DIZZINESS, TAB.CHEW 07/12/16 Lisinopril (Lisinopril) 10 Mg Tablet, 15 MG PO, 0 Refills 02/11/09 Levothyroxine Sodium (Synthroid) 500 Mcg/Vial Vial, 50 MCG PO QDAY, 0 Refills 02/11/09 Diet: Diabetic Activity: As Tolerated, No Exertion Special Instructions: Home oxygen at 2L continuously. Follow up with Renee MUELLER in next 3-5 days. Return to [facility] ER if any problems. Copies to: RENEE TOBIAS PA-C ; Venous Thromboembolism Antithrombotics Is Pt On Any Antithrombotics?: Yes Problem Qualifiers (1) Pneumonia: Pneumonia type: due to unspecified organism Laterality: right Lung location: lower lobe of lung Qualified Codes: J18.1 - Lobar pneumonia, unspecified organism (2) Acute renal failure: Acute renal failure type: unspecified Qualified Codes: N17.9 - Acute kidney failure, unspecified ADOLFO JOHNSON MD May 18, 2018 15:11
[2018-05-18] MEDS ORDERED: LEVO50TA86 PO (15:33)
[2018-05-18] MEDS ORDERED: OSELTAMIVIR PHOS 75 MG CAP PO SCH (21:00)
[2018-05-18] MEDS ORDERED: cefTRIAXone(*) 2 GM VIAL 2 GM in NS(*) 0.9% 100 ML ADDVANT BAG 100 ML IVPB SCH (21:00)
[2018-05-18] MEDS ORDERED: AZITHROMYCIN(*) 500 MG 500 MG in NS(*) 0.9% 250 ML BAG 250 ML IVPB SCH ×2 (21:00→22:00)
== END 2018-05-18 16:40 | disposition home or self-care (01) | DRG 193 ==
LOC: ER 18:29 → MED 21:21
PROVIDERS: ADMIT Internal Medicine; ATTEND Internal Medicine
DX: J10.08 Influenza due to other identified influenza virus with other specified pneumonia (principal); J96.01 Acute respiratory failure with hypoxia; N17.9 Acute kidney failure, unspecified; I10 Essential (primary) hypertension; R73.03 Prediabetes; E03.9 Hypothyroidism, unspecified; Z79.84 Long term (current) use of oral hypoglycemic drugs
CPT/HCPCS: 36415; 70450; 71045; 82040; 82247; 82310; 82374; 82435; 82565; 82947; 83605; 84075; 84132; 84155; 84295; 84450; 84460; 84484; 84520; 85025; 85379; 85651; 86140; 87040; 87502; 93005; 94640; 94667; 94668; 96361; 96374; 96375; 99285; J0131; J0456; J0696; J1650; J2270; J7030; J7050